=== PATIENT | male | born 1975 | race African-American/Black ===

== ENCOUNTER 2017-06-04 01:51 | Emergency (ER) | payer OTHER, MEDICAID ==
[2017-06-04 02:04] VITALS: BP 119/71; BMI 35.4
--- NOTE | 2017-06-04 02:25 | DR.GENAD ---
HPI - PCP Primary Care Physician: [email or web address] - HPI Comment HPI Comment: Pt has new PCP in [place], prior one left [facility], she had suggested knee replacement for pt but referral not made. Pt with chronic pain since injury playing ball in 2016. No new injury or trauma. - Complaint/Symptoms Chief Complaint:: "MY LEFT LEG IS SWELLING AND HURTS. THIS HAS BEEN GOING SINCE I BROKE MY TIBIA MAY 2015. I HAVE HAD 3 SURGERIES ON IT SINCE THEN. NO ONE CAN TELL ME WHATS WRONG WITH IT. " - Nurses notes reviewed Nurses Notes Review: Yes - Source History Provided: Patient - Mode of Arrival Mode of Arrival: Ambulatory - Timing Onset of Chief Complaint: 06/04/17 PMH - PMH Past Medical History: Yes Past Medical History: Asthma Past Medical History Comment: CPAP AT HS Past Surgical History: Yes Surgical History: Ortho Surgery - Family History History of Family Medical Conditions: Yes Family Medical History: Diabetes Mellitus, Hypertension - Social History Does patient currently use any type of tobacco product: No Have you used tobacco products in the last 12 months: No Type of Tobacco Use: None Alcohol Use: None Do you use any recreational Drugs:: No Lives Where: Home - infectious screening Have you traveled outside the country in the last 6 months?: No Isolation: Standard ROS - Review of Systems Musculoskeletal: Left, Leg Integumentary: No Symptoms Reported Hematologic/Lymphatic: No Symptoms Reported Endocrine: No Symptoms Reported Psychiatric: No Symptoms Reported PE - Vital Signs Vitals: Temperature 98.2 F Pulse Rate 83 Respiratory Rate 18 Blood Pressure 119/71 O2 Sat by Pulse Oximetry 97 - General Limitations: No Limitations General Appearance: Alert, In No Apparent Distress - Head Head Exam: Normal Inspection, Normocephalic - Eyes Eye exam: Normal Appearance - ENT ENT Exam: Normal Exam - Neck Neck Exam: Normal Inspection, Full ROM, Trachea Midline - Respiratory Respiratory Exam: Normal Lung Sounds Bilat - Cardiovascular Cardiovascular Exam: Regular Rate, Normal Rhythm - Abdominal Exam Abdominal Exam: Normal Inspection, Normal Bowel Sounds, Soft - Extremities Extremities Exam: Full ROM, Tenderness, Normal Capillary Refill, Other (left lower leg swollen, chronically per pt. No erythema. Good popliteal on left) - Back Back Exam: Normal Inspection - Neurologic Neurological Exam: Alert, Oriented X3 - Psychiatric Psychiatric Exam: Normal Affect, Normal Mood - Diagnosis Discharge Problem: Leg pain, left - Discharge Plan Disposition: HOME, SELF-CARE Condition: Stable Prescriptions: Tramadol HCl 50 mg PO Q4-6H PRN #15 tablet PRN Reason: Pain - Follow ups/Referrals Follow ups/Referrals: NFD,None [Primary Care Provider] - 3 days - Instructions Additional Notes - Additional Notes Additional Notes: Spoke with pt at length regarding need for ortho referral and for pt to f/u new PCP. Offered to do Xray but pt has had many that don't reveal etiology. Told pt I suspect vasc congestion due to post op changes.
== END 2017-06-04 02:33 | disposition home or self-care (01) ==
LOC: ER 01:51
DX: M79.662 Pain in left lower leg (principal)
CPT/HCPCS: 99281; 99282